=== PATIENT | male | born 1960 ===

== ENCOUNTER 2021-04-30 10:18 | Emergency (ER) | payer OTHER, SELFPAY ==
[2021-04-30 10:28] VITALS: BP 129/72; PULSE 102; RESP 16; TEMP 36.8; O2SAT 98; BMI 25.8
[2021-04-30 11:09] LABS: Add Manual Diff / Slide Review NO; Basophils Absolute Auto 100 /uL (0-100); Basophils Percent Auto 0.6 % (0-2); Eosinophils Absolute Auto 100 /uL (0-450); Eosinophils Percent Auto 0.6 % (2-4); Hematocrit 43.3 % (41-53); Hemoglobin 14.5 g/dL (13.5-17.5); Lymphocytes Absolute Auto 1600 /uL (1100-4500); Lymphocytes Percent Auto 13.3 % (25-40); Mean Corpuscular HGB Conc 33.5 % (30-36); Mean Corpuscular Hemoglobin 31.4 PG (26-34); Mean Corpuscular Volume 93.9 fL (80-100); Monocytes Absolute Auto 1000 /uL (0-900); Monocytes Percent Auto 8.4 % (3-14); Neutrophils Absolute Auto 9200 /uL (1500-7000); Neutrophils Percent Auto 77.1 % (50-75); Platelet Count 259 X10^3/uL (150-400); Red Blood Cell Count 4.61 X10^6/uL (4.5-5.9); Red Cell Distribution Width 12.8 % (11.6-14.8); White Blood Cell Count 11.9 X10^3/uL (4.5-11.0)
[2021-04-30 11:15] LABS: Alanine Aminotransferase 27 IU/L (<50); Albumin 4.4 g/dL (3.5-5.0); Albumin Globulin Ratio 1.3 (1.0-2.8); Alkaline Phosphatase 72 U/L (38-126); Aspartate Aminotransferase 46 IU/L (17-59); BUN Creatinine Ratio 14.9 (6-22); Bilirubin Total 1.2 mg/dL (0.2-1.3); Blood Urea Nitrogen 14 mg/dL (9-20); Calcium 8.9 mg/dL (8.4-10.2); Carbon Dioxide 25 mmol/L (22-32); Chloride 108 mmol/L (98-107); Estimated Glomerular Filt Rate > 60.0 mL/min (>60); Globulin 3.5 g/dL (1.7-4.1); Glucose 122 mg/dL (70-100); HEMOLYSIS 19 (0-50); Lipase 52 U/L (23-300); Potassium 4.2 mmol/L (3.4-5.1); Sodium 137 mmol/L (137-145); Total Protein 7.9 g/dL (6.3-8.2)
[2021-04-30 11:19] LABS: Bacteria Urine None Seen; Culture Indicated Urine Cult Not Indicated; Mucus Urine 1+ (Negative); RBC Urine 1-5/HPF (0-5/HPF); WBC Urine 0-1/HPF (0-5/HPF)
[2021-04-30 11:23] LABS: INR 1.2 (0.9-1.3); Prothrombin Time 13.2 SECONDS (10.1-12.7)
[2021-04-30 11:26] LABS: PTT Partial Thromboplastin Tim 36 SECONDS (26.4-36.2)
--- NOTE | 2021-04-30 11:50 | ED_ITS ---
HPI - Abdominal Pain General Chief Complaint: Abdominal Pain Stated Complaint: Sharp pain in lower right abd Time Seen by Provider: 04/30/21 10:24 Source: patient Mode of arrival: Ambulatory Limitations: no limitations History of Present Illness HPI narrative: This is a 60-year-old male who comes emergency department with complaint of right lower quadrant pain which has been present for approximately 3 days. Pat ient states it has been constant, there may be some waxing waning waves but mostly has been persistent. He has been taking Tylenol and using a heating pad which is somewhat helpful. He notes if he takes a deep breath, moves a certain way or riding in the car if he had a large bump he has increased pain. He denies fever, no chills. No nausea or vomiting. No flank or back pain. He states there may have been some slight movement in the location but no major changes. He denies any radiation to the testicles. He has not appreciated dysuria, urgency frequency discharge or hematuria. He denies any diarrhea constipation. No skin changes. Patient states no daily medications. No prior surgeries. He has had 1 prior kidney stone states it may have felt similar. Denies tobacco, occasional alcohol, no illicit. He is accompanied by his spouse today. Related Data Previous Rx's Medication Instructions Recorded amoxicillin 875 mg-potassium 1 tab PO Q12H #20 tab 04/30/21 clavulanate 125 mg tablet (Augmentin) hydrocodone 5 mg-acetaminophen 325 1 tab PO QID PRN #10 tab 04/30/21 mg tablet Allergies Allergy/AdvReac Type Severity Reaction Status Date / Time No Known Drug Allergies Allergy Verified 04/30/21 10:31 Review of Systems Review of Systems ROS Unobtainable: All systems reviewed & are unremarkable except as noted in HPI and below Patient History Social History Smoking Status: Never smoker Smoking Status: Never smoker alcohol intake frequency: 0-2 drinks per day Substance Use Type: does not use Exam Narrative Exam Narrative: GENERAL: Alert and oriented x three, male in mild distress. HEENT: Head normocephalic, atraumatic, EOMI, pupils reactive, face symmetric, moist mucous membranes NECK: Supple, full range of motion CARDIOVASCULAR: Regular rate and rhythm without murmurs, rubs or gallops. RESPIRATORY: Breath sounds equal bilaterally, no wheezes rales or rhonchi. ABDOMEN: Soft, positive for right lower quadrant tenderness. Normoactive bowel sounds all 4 quadrants. No guarding or rebound, rigidity, no mass, no palpable hernia or mass appreciated. : No CVA tenderness EXTREMITIES: Normal range of motion, no clubbing or edema. Neurovascularly intact NEUROLOGICAL: Cranial nerves II through XII grossly intact. Moving all extremities SKIN: Warm, dry, no petechiae, no rashes or lesions. Initial Vital Signs Initial Vital Signs: Vital Signs Temperature 98.3 F 04/30/21 10:28 Pulse Rate 102 H 04/30/21 10:28 Respiratory Rate 16 04/30/21 10:28 Blood Pressure 129/72 04/30/21 10:28 Pulse Oximetry 98 04/30/21 10:28 Course Orders Ordered: ED Orders 04/30/21 10:25 Urine Microscopic Stat 04/30/21 10:45 Complete Blood Count AUTO DIFF Stat Comprehensive Metabolic Panel Stat Lipase Stat Partial Thromboplastin Time Stat Prothrombin Time INR Stat 04/30/21 11:57 CT abdomen pelvis w con Stat Discontinued Medications Ketorolac Tromethamine (Ketorolac 30 Mg/Ml Vial) 15 mg IV NOW ONE Stop: 04/30/21 13:23 Last Admin: 04/30/21 13:26 Dose: 15 mg Documented by: SAMIA Vital Signs Vital signs: Vital Signs - 8 hr 04/30/21 10:28 04/30/21 13:30 Temperature 98.3 F 98.5 F Pulse Rate 102 H 88 Respiratory Rate 16 15 Blood Pressure 129/72 129/72 Pulse Oximetry 98 99 MDM - Abdominal Pain Lab Data Result diagrams: 04/30/21 10:45 04/30/21 10:45 Labs: Lab Results 04/30/21 04/30/21 04/30/21 Range/Units 10:25 10:45 10:45 WBC 11.9 H (4.5-11.0) X10^3/uL RBC 4.61 (4.5-5.9) X10^6/uL Hgb 14.5 (13.5-17.5) g/dL Hct 43.3 (41-53) % MCV 93.9 (80-100) fL MCH 31.4 (26-34) PG MCHC 33.5 (30-36) % RDW 12.8 (11.6-14.8) % Plt Count 259 (150-400) X10^3/uL Neut % (Auto) 77.1 H (50-75) % Lymph % (Auto) 13.3 L (25-40) % [place] % (Auto) 8.4 (3-14) % Eos % (Auto) 0.6 L (2-4) % Baso % (Auto) 0.6 (0-2) % Neut # (Auto) 9200 H (2814-8103) /uL Lymph # (Auto) 1600 (2788-6491) /uL [place] # (Auto) 1000 H (0-900) /uL Eos # (Auto) 100 (0-450) /uL Baso # (Auto) 100 (0-100) /uL PT 13.2 H (10.1-12.7) SECONDS INR 1.2 (0.9-1.3) APTT 36 (26.4-36.2) SECONDS Sodium (137-145) mmol/L Potassium (3.4-5.1) mmol/L Chloride (98-107) mmol/L Carbon Dioxide (22-32) mmol/L BUN (9-20) mg/dL Creatinine (0.66-1.25) mg/dL Estimated GFR (>60) mL/min BUN/Creatinine Ratio (6-22) Glucose (70-100) mg/dL Calcium (8.4-10.2) mg/dL Total Bilirubin (0.2-1.3) mg/dL AST (17-59) IU/L ALT (<50) IU/L Alkaline Phosphatase (38-126) U/L Total Protein (6.3-8.2) g/dL Albumin (3.5-5.0) g/dL Globulin (1.7-4.1) g/dL Albumin/Globulin Ratio (1.0-2.8) Lipase (23-300) U/L Urine RBC 1-5/hpf (0-5/HPF) Urine WBC 0-1/hpf (0-5/HPF) Urine Bacteria None seen (None) Urine Mucus 1+ H (Negative) Ur Culture Indicated? Cult not indicated 04/30/21 Range/Units 10:45 WBC (4.5-11.0) X10^3/uL RBC (4.5-5.9) X10^6/uL Hgb (13.5-17.5) g/dL Hct (41-53) % MCV (80-100) fL MCH (26-34) PG MCHC (30-36) % RDW (11.6-14.8) % Plt Count (150-400) X10^3/uL Neut % (Auto) (50-75) % Lymph % (Auto) (25-40) % [place] % (Auto) (3-14) % Eos % (Auto) (2-4) % Baso % (Auto) (0-2) % Neut # (Auto) (0230-7215) /uL Lymph # (Auto) (3728-3629) /uL [place] # (Auto) (0-900) /uL Eos # (Auto) (0-450) /uL Baso # (Auto) (0-100) /uL PT (10.1-12.7) SECONDS INR (0.9-1.3) APTT (26.4-36.2) SECONDS Sodium 137 (137-145) mmol/L Potassium 4.2 (3.4-5.1) mmol/L Chloride 108 H (98-107) mmol/L Carbon Dioxide 25 (22-32) mmol/L BUN 14 (9-20) mg/dL Creatinine 0.94 (0.66-1.25) mg/dL Estimated GFR > 60.0 (>60) mL/min BUN/Creatinine Ratio 14.9 (6-22) Glucose 122 H (70-100) mg/dL Calcium 8.9 (8.4-10.2) mg/dL Total Bilirubin 1.2 (0.2-1.3) mg/dL AST 46 (17-59) IU/L ALT 27 (<50) IU/L Alkaline Phosphatase 72 (38-126) U/L Total Protein 7.9 (6.3-8.2) g/dL Albumin 4.4 (3.5-5.0) g/dL Globulin 3.5 (1.7-4.1) g/dL Albumin/Globulin Ratio 1.3 (1.0-2.8) Lipase 52 (23-300) U/L Urine RBC (0-5/HPF) Urine WBC (0-5/HPF) Urine Bacteria (None) Urine Mucus (Negative) Ur Culture Indicated? Point of care testing: Urine Dip Bedside Urine Glucose Negative Bedside Urine Bilirubin - Negative Bedside Urine Ketone +/- 5 Urine Specific [place] 1.025 Bedside Urine Occult Blood + Bedside Urine pH 5.5 Bedside Urine Protein +/- 15 Bedside Urine Urobilinogen - Negative Bedside Urine Nitrite - Negative Bedside Urine Leukocytes +/- [address] scan - abdomen/pelvis: Radiologist's Impression: [address] [address] [address] Scan Report Signed Patient: Kem Garcia MR#: [id number] : 1960 Acct:[id number] Age/Sex: 60 / M Date of Service: 04/30/21 Loc: ED Accession Number: [id number] ?? Procedure: CT abdomen pelvis w con Ordering Provider: Claudia De La Torre D.O. PROCEDURE:? CT ABDOMEN PELVIS W CON ? INDICATIONS:? RLQ pain x 3 days, + tender, no other symptoms. hx stone ? TECHNIQUE:? After the administration of IV contrast, axial sections were acquired from the lung bases to the pubic symphysis.? Coronal and sagittal reformats were performed.? For radiation dose reduction, the following was used:? automated exposure control, adjustment of mA and/or kV according to patient size. ? COMPARISON:? [facility], CT, KIDNEY/ URETER/BLADDER, 02/07/2014, 4:17. ? FINDINGS:? Image quality:? Excellent.? ? Lung bases:? Unremarkable.? ? Heart:? No significant findings. ? ? ABDOMEN: Liver:? Hepatic steatosis is present hepatic cysts are unchanged. Gallbladder:? The gallbladder is unremarkable? ? Biliary ducts:? Unremarkable.? ? Pancreas:? Unremarkable.? ? Spleen:? Unremarkable.? ? Adrenal Glands:? Unremarkable.? ? Kidneys and Ureters:? Unremarkable.? ? ? Stomach and Bowel:? Colonic loops are nonobstructive.? Colonic diverticula are noted.? There is thickening and inflammatory change within a focal loop of the ascending colon best seen on series 2, image 48. This is located superior to the appendix which is normal. Peritoneum:? No abnormal intraperitoneal fluid.? No free air.? ? Ventral Wall: ? Trace fat containing ventral hernia is present. Abdominal Nodes:? No retroperitoneal or mesenteric adenopathy by size criteria.? Vessels:? Aorta and inferior vena cava are normal in size.? ? PELVIS: Pelvic Organs:? Unremarkable.? ? Bladder:? There is a focal area of relative increased hyperdensity noted within the right posterior lateral bladder seen on series 2, image 78. This is not visualized on prior exam of 2013. Pelvic Nodes: No enlarged lymph nodes.? Miscellaneous:? Bilateral fat containing inguinal hernias are present. ? Bones:? Unremarkable.? IMPRESSION:? ? Focal area of thickening and inflammatory change within the ascending colon as above.? While this may be reflective of infection/inflammation such as colitis secondary to diverticulitis, recommend interval follow-up to document resolution and exclude presence of focal inflammatory malignancy. ? Appendix is normal. ? ? 3 mm relative hyperdensity within the right posterior lateral bladder is above.? While this could represent a recently passed stone, bladder nodule cannot be excluded.? Interval follow-up is recommended as well as urologic consultation as indicated.? ? Dictated by: Parris Velasco M.D. on 04/30/2021 at 12:32 ? ? Approved by: Parris Velasco M.D. on 04/30/2021 at 12:41?? MDM Narrative Medical decision making narrative: This is a 52-year-old male comes with right lower quadrant pain for 3 days with reproducible pain on exam. Patient has no other significant symptoms. He does have 1-5 RBCs on urinalysis with no other signs of infection. He has a mild white count but no other significant changes to lab work. With patient's symptoms being reproducible felt it would be more appropriate to have CT abdomen pelvis to evaluate for appendicitis, kidney stone versus colitis or other cause I do not appreciate any hernia or mass on examination. After discussion of risks versus benefits for ultrasound versus CT patient is agreeable and prefers to start with CT scanning. Imaging shows Colitis, possible bladder nodule versus stone but patient still has symptoms even with the hyperdensity in the bladder making bladder nodule more likely. Discussed these findings with the patient he needs follow-up with colonoscopy and likely cystoscopy as well. Patient expresses understanding. With elevated white count and leftward shift given Augmentin, short course of pain medication and plan for follow-up. Discharge Plan Departure Patient Disposition: Home Clinical Impression: Colitis Instructions: DI for Colitis Activity Restrictions/Additional Instructions: Follow-up for recheck if your symptoms are not improving in the next several days to week. Your CT findings show changes consistent with colitis. I would recommend follow-up either with colonoscopy or repeat CT to document resolution of the thickening and inflammatory changes in your ascending colon. It is noted a small area hyperdensity in the lateral bladder, this could possibly be a recently passed stone but bladder nodule is not excluded and you should follow-up with urology to have cystoscopy and evaluation. Referral is included below call to set up follow-up. Take antibiotics and daily until gone. You may take ibuprofen up to 800 mg every 8 hours and/or narcotic pain medication as prescribed. Take pain medication as prescribed. This medication can make you sleepy do not drive, perform hazardous activities or make any major decisions while taking it. This medication will make you constipated please take a stool softener once to twice daily until stools are soft and regular. Prescription sent to [facility]. Return for fevers, worsening abdominal pain, lightheadedness or passing out, new chest pain or shortness of breath, back or flank pain, black or bloody stools, difficulty urinating or other new or concerning symptoms. Prescriptions: New amoxicillin-pot clavulanate [Augmentin] 875-125 mg tablet 1 tab PO Q12H Qty: 20 0RF hydrocodone-acetaminophen 5-325 mg tablet 1 tab PO QID PRN (Reason: pain) Qty: 10 0RF Referrals: Brian Daniel MD [Physician] -
--- NOTE | 2021-04-30 11:57 | DI.CT.S_ITS ---
PROCEDURE: CT ABDOMEN PELVIS W CON INDICATIONS: RLQ pain x 3 days, + tender, no other symptoms. hx stone TECHNIQUE: After the administration of IV contrast, axial sections were acquired from the lung bases to the pubic symphysis. Coronal and sagittal reformats were performed. For radiation dose reduction, the following was used: automated exposure control, adjustment of mA and/or kV according to patient size. COMPARISON: [facility], CT, KIDNEY/ URETER/BLADDER, 02/07/2014, 4:17. FINDINGS: Image quality: Excellent. Lung bases: Unremarkable. Heart: No significant findings. ABDOMEN: Liver: Hepatic steatosis is present hepatic cysts are unchanged. Gallbladder: The gallbladder is unremarkable Biliary ducts: Unremarkable. Pancreas: Unremarkable. Spleen: Unremarkable. Adrenal Glands: Unremarkable. Kidneys and Ureters: Unremarkable. Stomach and Bowel: Colonic loops are nonobstructive. Colonic diverticula are noted. There is thickening and inflammatory change within a focal loop of the ascending colon best seen on series 2, image 48. This is located superior to the appendix which is normal. Peritoneum: No abnormal intraperitoneal fluid. No free air. Ventral Wall: Trace fat containing ventral hernia is present. Abdominal Nodes: No retroperitoneal or mesenteric adenopathy by size criteria. Vessels: Aorta and inferior vena cava are normal in size. PELVIS: Pelvic Organs: Unremarkable. Bladder: There is a focal area of relative increased hyperdensity noted within the right posterior lateral bladder seen on series 2, image 78. This is not visualized on prior exam of 2013. Pelvic Nodes: No enlarged lymph nodes. Miscellaneous: Bilateral fat containing inguinal hernias are present. Bones: Unremarkable. IMPRESSION: Focal area of thickening and inflammatory change within the ascending colon as above. While this may be reflective of infection/inflammation such as colitis secondary to diverticulitis, recommend interval follow-up to document resolution and exclude presence of focal inflammatory malignancy. Appendix is normal. 3 mm relative hyperdensity within the right posterior lateral bladder is above. While this could represent a recently passed stone, bladder nodule cannot be excluded. Interval follow-up is recommended as well as urologic consultation as indicated. Dictated by: Parris Velasco M.D. on 04/30/2021 at 12:32 Approved by: Parris Velasco M.D. on 04/30/2021 at 12:41
[2021-04-30] MEDS: KETOROLAC 30 MG/ML VIAL 15 MG IV (13:26)
[2021-04-30 13:30] VITALS: BP 129/72; PULSE 88; RESP 15; TEMP 36.9; O2SAT 99
== END 2021-04-30 14:04 | disposition home or self-care (01) ==
PROVIDERS: Emergency Provider Emergency Medicine
DX: K52.9 Noninfective gastroenteritis and colitis, unspecified (principal)
CPT/HCPCS: 36415; 74177; 80053; 81003; 81015; 83690; 85025; 85610; 85730; 96374; 99284; J1885; Q9967

== ENCOUNTER 2025-01-10 17:59 | Emergency (ER) | payer OTHER, SELFPAY ==
[2025-01-10] VITALS (10 sets, daily range): BP systolic 141–164; BP diastolic 79–92; PULSE 64–81; RESP 14–18; TEMP 36.9–37.3; O2SAT 95–98; BMI 25.1
--- NOTE | 2025-01-10 18:11 | ED_ITS ---
HPI - Abdominal Pain
--- NOTE | 2025-01-10 18:11 | ED.ABDPAIN ---
HPI - Abdominal Pain General Chief Complaint: Abdominal Pain Stated Complaint: KIDNEY PAIN WK Time Seen by Provider: 01/10/25 18:04 Source: patient Mode of arrival: Ambulatory History of Present Illness HPI narrative: 62-year-old male with a history of kidney stones presents with left lower quadrant abdominal pain that has been progressively getting worse in the past week. He denies any other or GI symptoms. No other systemic symptoms. Related Data Previous Rx's ?Medication ?Instructions ?Recorded amoxicillin 875 mg-potassium 1 tab PO Q12H #20 tabs 04/30/21 clavulanate 125 mg tablet (Augmentin) hydrocodone 5 mg-acetaminophen 325 1 tab PO QID PRN pain #10 tabs 04/30/21 mg tablet Allergies Allergy/AdvReac Type Severity Reaction Status Date / Time No Known Drug Allergies Allergy Verified 01/10/25 18:06 Review of Systems Review of Systems ROS Unobtainable: All systems reviewed & are unremarkable except as noted in HPI and below Patient History Social History Smoking Status: Current every day smoker Smoking Status: Current every day smoker alcohol intake frequency: 0-2 drinks per day Exam Narrative Exam Narrative: General: Patient appears to be in no acute distress, acting appropriately Head: normocephalic, atraumatic, HEENT: Pupils equal round reactive, eyes tracking well, neck supple, no JVD Heart: regular rate and rhythm, no murmurs, rubs, or gallops heard Lungs: clear to auscultation, no adventitious sounds Abdomen: soft , mildly tender with palpation of left lower quadrant area, nondistended, positive bowel sounds, no cva tenderness bilatearlly Neurological: no focal neurological signs, moving all extremities well, alert and oriented x3, Psych: good judgment ,good insight, mood is normal. Initial Vital Signs Initial Vital Signs: Vital Signs Temperature 99.2 F 01/10/25 18:01 Pulse Rate 81 01/10/25 18:01 Respiratory Rate 14 01/10/25 18:01 Blood Pressure 164/79 H 01/10/25 18:01 Pulse Oximetry 98 01/10/25 18:01 Oxygen Delivery Method Room Air 01/10/25 18:01 Course Orders Ordered: ED Orders 01/10/25 18:12 CT abdomen pelvis wo con Stat 01/10/25 18:13 Complete Blood Count AUTO DIFF Stat Comprehensive Metabolic Panel Stat Lipase Stat Discontinued Medications Sodium Chloride (Normal Saline 0.9%) 1,000 mls @ 1,000 mls/hr IV BOLUS PRN PRN Reason: Fluid replacement Last Infusion: 01/10/25 19:56 Dose: Infused Documented By: Admin: 01/10/25 18:18 Dose: 1,000 mls/hr Documented By: BARBARA Ketorolac Tromethamine (Ketorolac 30 Mg/Ml Vial) 30 mg IV NOW ONE Stop: 01/10/25 18:12 Last Admin: 01/10/25 18:36 Dose: 15 mg Documented By: BARBARA Reevaluation(s) Reevaluation #1: Feeling much better after some fluids and Toradol. Vital Signs Vital signs: Vital Signs - 8 hr 01/10/25 18:01 01/10/25 18:04 01/10/25 18:05 Temperature 99.2 F Pulse Rate 81 81 Respiratory Rate 14 Blood Pressure 164/79 H Pulse Oximetry 98 97 97 Oxygen Delivery Method Room Air 01/10/25 18:05 01/10/25 18:30 01/10/25 18:30 Temperature Pulse Rate 78 Respiratory Rate Blood Pressure 164/79 H 150/92 H Pulse Oximetry 96 Oxygen Delivery Method 01/10/25 19:00 01/10/25 19:00 01/10/25 19:30 Temperature Pulse Rate 72 70 Respiratory Rate Blood Pressure 141/91 H Pulse Oximetry 96 96 Oxygen Delivery Method 01/10/25 19:30 01/10/25 19:52 01/10/25 19:52 Temperature Pulse Rate 64 Respiratory Rate Blood Pressure 153/86 H 153/83 H Pulse Oximetry 95 Oxygen Delivery Method 01/10/25 19:53 01/10/25 19:53 01/10/25 19:56 Temperature 98.4 F Pulse Rate 66 Respiratory Rate Blood Pressure 144/84 H Pulse Oximetry 95 Oxygen Delivery Method 01/10/25 20:05 Temperature 98.4 F Pulse Rate 67 Respiratory Rate 18 Blood Pressure 143/84 H Pulse Oximetry 96 Oxygen Delivery Method Room Air MDM - Abdominal Pain Lab Data 01/10/25 18:13 01/10/25 18:13 Labs: Lab Results 01/10/25 Range/Units 18:13 WBC 7.9 (4.5-11.0) X10^3/uL RBC 4.39 L (4.5-5.9) X10^6/uL Hgb 14.7 (13.5-17.5) g/dL Hct 42.6 (41-53) % MCV 97.0 (80-100) fL MCH 33.5 (26-34) PG MCHC 34.6 (30-36) % RDW 13.5 (11.6-14.8) % Plt Count 245 (150-400) X10^3/uL Neut % (Auto) 68.3 (50-75) % Lymph % (Auto) 19.3 L (25-40) % [place] % (Auto) 9.6 (3-14) % Eos % (Auto) 1.6 L (2-4) % Baso % (Auto) 1.2 (0-2) % Neut # (Auto) 5400 (4514-9992) /uL Lymph # (Auto) 1500 (9331-9964) /uL [place] # (Auto) 800 (0-900) /uL Eos # (Auto) 100 (0-450) /uL Baso # (Auto) 100 (0-100) /uL Sodium 137 (137-145) mmol/L Potassium 4.0 (3.4-5.1) mmol/L Chloride 108 H (98-107) mmol/L Carbon Dioxide 21 L (22-32) mmol/L BUN 16 (9-20) mg/dL Creatinine 1.40 H (0.66-1.25) mg/dL Estimated GFR 57 L (>60) mL/min BUN/Creatinine Ratio 11.4 (6-22) Glucose 100 H (70-99) mg/dL Calcium 8.8 (8.4-10.2) mg/dL Total Bilirubin 1.1 (0.2-1.3) mg/dL AST 36 (17-59) IU/L ALT 27 (<50) IU/L Alkaline Phosphatase 70 (38-126) U/L Total Protein 7.3 (6.3-8.2) g/dL Albumin 4.1 (3.5-5.0) g/dL Globulin 3.2 (1.7-4.1) g/dL Albumin/Globulin Ratio 1.3 (1.0-2.8) Lipase 48 (23-300) U/L Imaging Data CT scan - abdomen/pelvis: Radiologist's Impression: Single 6 mm stone adjacent to the ureterovesicular junction within the bladder, likely recently passed, with associated hydroureteronephrosis and inflammation. Bowel findings suggestive of chronic constipation and increased bowel transit times. MDM Narrative Medical decision making narrative: 64-year-old male who came in for left lower quadrant abdominal pain was found to have a single 6 mm stone adjacent to the ureterovesicular junction with an a bladder, likely recently passed. Patient's pain significantly improved with some Toradol and fluids. Patient reassured that stone was just recently passed. Given a strainer and will follow up if pain persists. Discharge Plan Departure Patient Disposition: Home Clinical Impression: Kidney stone on left side Instructions: Kidney Stones -- Adult Activity Restrictions/Additional Instructions: Continue to hydrate well. Use the strainer to try to catch the stone. Stones already passed in the bladder. Turned in the stone to analyze with PCP. Follow up if pain gets worse or new symptoms. Prescriptions: No Action amoxicillin-pot clavulanate [Augmentin] 875-125 mg tablet 1 tab PO Q12H Qty: 20 0RF hydrocodone-acetaminophen 5-325 mg tablet 1 tab PO QID PRN (Reason: pain) Qty: 10 0RF Stand Alone Forms: Patient Portal/API
--- NOTE | 2025-01-10 18:12 | DI.CT.S_ITS ---
PROCEDURE: CT ABDOMEN PELVIS WO CON
[2025-01-10] MEDS: SODIUM CHLORIDE 0.9% 1,000 ML 1000 ML IV (18:18)
[2025-01-10 18:21] LABS: Add Manual Diff / Slide Review NO; Hematocrit 42.6 % (41-53); Hemoglobin 14.7 g/dL (13.5-17.5); Lymphocytes Absolute Auto 1500 /uL (1100-4500); Mean Corpuscular HGB Conc 34.6 % (30-36); Mean Corpuscular Hemoglobin 33.5 PG (26-34); Mean Corpuscular Volume 97.0 fL (80-100); Platelet Count 245 X10^3/uL (150-400)
[2025-01-10 18:34] LABS: Alanine Aminotransferase 27 IU/L (<50); Albumin 4.1 g/dL (3.5-5.0); Albumin Globulin Ratio 1.3 (1.0-2.8); Alkaline Phosphatase 70 U/L (38-126); Blood Urea Nitrogen 16 mg/dL (9-20); Calcium 8.8 mg/dL (8.4-10.2); Carbon Dioxide 21 mmol/L (22-32); Chloride 108 mmol/L (98-107); Estimated Glomerular Filt Rate 57 mL/min (>60); Globulin 3.2 g/dL (1.7-4.1); Glucose 100 mg/dL (70-99); HEMOLYSIS < 15 (0-50); Lipase 48 U/L (23-300); Potassium 4.0 mmol/L (3.4-5.1); Sodium 137 mmol/L (137-145); Total Protein 7.3 g/dL (6.3-8.2)
[2025-01-10] MEDS: KETOROLAC 30 MG/ML VIAL IV (18:36)
--- NOTE | 2025-01-10 20:04 | PC.NURSE ---
Pt given urinal, stone screen and sterile cup for collection of kidney stone.
== END 2025-01-10 20:08 | disposition home or self-care (01) ==
PROVIDERS: Emergency Provider Family Medicine
DX: N20.0 Calculus of kidney (principal); Z87.442 Personal history of urinary calculi
CPT/HCPCS: 36415; 74176; 80053; 83690; 85025; 96361; 96374; 99284; J1885; J7030